=== PATIENT | female | born 1975 | race Caucasian/White ===

== ENCOUNTER 2021-02-09 10:52 | Outpatient (CLI) | payer OTHER | END 2021-02-09 10:53 | disposition home or self-care (01) | LOC: SCSMRI 10:52 | PROVIDERS: ATTEND Physical Medicine & Rehabilitation | DX: M48.07 Spinal stenosis, lumbosacral region (principal); M48.061 Spinal stenosis, lumbar region without neurogenic claudication; M54.5 Low back pain; M47.816 Spondylosis without myelopathy or radiculopathy, lumbar region; M43.16 Spondylolisthesis, lumbar region; M89.9 Disorder of bone, unspecified | CPT/HCPCS: 72148 ==